=== PATIENT | female | born 2000 | race Caucasian/White ===

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

== ENCOUNTER 2021-05-04 16:46 | Outpatient (CLI) | payer MEDICAID, SELFPAY | END 2021-05-04 23:59 | disposition short-term general hospital (02) | LOC: PAT 06-19 16:46 | PROVIDERS: Referring Provider Otolaryngology; Visit Provider Otolaryngology | DX: U07.1 COVID-19 (principal) | CPT/HCPCS: 87426; 87635; U0005; U0003 ==

== ENCOUNTER 2021-07-10 07:00 | Day surgery (SDC) | payer MEDICAID, SELFPAY ==
[2021-07-10 07:27] VITALS: BP 110/84; PULSE 81; RESP 18; TEMP 36.8; O2SAT 100; BMI 35.4
[2021-07-10 07:30] LABS: Internal QC Validated? YES +Cl - CLEAR BKGD; Pregnancy, Urine Negative Negative
[2021-07-10] MEDS: Lactated Ringers 1,000 ML 15 ML IV (07:41)
--- NOTE | 2021-07-10 07:55 | PCM.DC.SUM ---
Providers Primary Care Physician: No Primary Care Phys Reason For Visit: TONSILLECTOMY Medications at Discharge Home Medications NK 05/03/21 Weight / BMI Weight Weight: 96.7 kg Body Mass Index (BMI) 35.4 ABG / Lab / Microbiology Data Laboratory: Laboratory Results - last 24 hr 07/10/21 07:18: Urine Test Negative D/C Instructions Discharge Diet: Soft diet Additional Activity Instructions: Soft diet x 2 weeks Meaningful Use Info Meaningful Use Diagnoses (Choose all that apply): None applicable Discharge Plan Admission Attending Provider: Dino Harris Primary Care Provider: Care Physician,No Primary Discharge Orders/Prescriptions Prescriptions: No Action NK RF: 0
--- NOTE | 2021-07-10 08:40 | TONS_PTH ---
PATIENT: JASMIN SAENZ [place] [facility] [place][id number] AGE/SX: 21/F ROOM: RE07/10/[address]: Dr. Dino Harris MD : 2000 BED: DIS: 07/10/2021 SPEC #: [id number] RECD: 07/10/21 12:30 STATUS: JUNIOR GRIS #: [id number] SARBJIT: 07/10/21 08:[address]: Dino Harris DEPT: SURGICAL PATHOLOGY RECD BY: Debbie Vivas ENTERED: 07/10/21 12:47 SP TYPE: TONSILS OTHR DR: No Primary Care Phys Tissues: Tonsil, NOS Procedures: Surgery Specimen Level III HEADER OPERATION: Tonsillectomy PRE-OP DIAGNOSIS: Chronic tonsillitis, hypertrophy of tonsils TISSUE SUBMITTED: Right and left tonsil, tie on right MICROSCOPIC DIAGNOSIS Right and left tonsils, bilateral tonsillectomies: Benign lymphoid follicular hyperplasia, consistent with chronic tonsillitis. Organisms consistent with actinomyces. AM:donald 07/11/2021 MICROSCOPIC DESCRIPTION Slides are reviewed. GROSS DESCRIPTION Received is one container labeled with the patient's name and designated tonsils - tie on right are two tonsils that in aggregate weigh 8.3 gm. The right tonsil has a tie on it and measures 3 x 2 x 1.5 cm. The left tonsil measures 2.5 x 2 x 1.5 cm. Both tonsils are similar in appearance. The external surfaces are pink-amado, smooth, glistening and somewhat lobulated. Focally they are hemorrhagic, granular and bear cautery artifact. Serial cross sections through the tonsils reveal normal tonsillar architecture. Sections are submitted in two cassettes as follows: 1 - right tonsil, 2 - left tonsil. / SHANTANU:donald 07/10/2021 TC:5 CPT: 16397 x2
[2021-07-10] MEDS: Bupivacaine Mpf 0.5% 30 ML VIAL (09:07)
--- NOTE | 2021-07-10 09:14 | PCM.OPRPT ---
Report of Operation Date of Procedure: 07/10/21 Pre-Operative Diagnosis: chronic tonsillitis tonsillar hypertrophy Post-Operative Diagnosis: same Surgery/Procedure Performed:: Tonsillectomy Surgeon: Dino Harris Type of Anesthesia: General Anesthesiologist: Desmond Pelayo Estimated Blood Loss (mL): minimal Description of Procedure: The patient was taken to the OR on 07/10/2021. The patient was placed in the supine position on the OR table. The patient was given sufficient general endotracheal anesthesia. The table was turned 90 degrees clockwise. A Tang mouthgag was inserted into the patient's mouth. The patient was suspended on a Zurita stand. The adenoid was inspected with a mirror, it was minimal and left alone. The right tonsil was grasped with an Allis clamp and removed using a bovie cautery. Absolute hemostasis was achieved using suction cautery. The left tonsil was grasped with an Allis clamp and removed using a bovie cautery. Absolute hemostasis was achieved using suction cautery. .5% marcaine was placed on an adenoid sponge and placed in each tonsillar fossa for one minute on each side and then removed. The gag was closed. It was re opened to inspect for bleeding and there was none. The gag was then removed. The patient was then awoken and brought to the recovery room in stable condition. Blood loss minimal, replacement none. Sponge, needle and instrument count were correct at the end of the procedure.
[2021-07-10 09:26] VITALS: BP 110/84; BP 116/83; PULSE 118; RESP 20; TEMP 36.3; O2SAT 100
[2021-07-10 09:30] VITALS: BP 108/77; BP 110/84; PULSE 117; RESP 16; O2SAT 98
[2021-07-10 09:45] VITALS: BP 101/59; BP 110/84; PULSE 93; RESP 16; O2SAT 98
[2021-07-10 09:57] VITALS: BP 109/76; BP 110/84; PULSE 98; RESP 16; TEMP 36.6; O2SAT 98
[2021-07-10] MEDS: HYDROcodone Bitartrate/Apap 5/325 Tablet PO (10:25)
[2021-07-10 11:00] VITALS: BP 100/58; BP 110/84; PULSE 100; RESP 16; TEMP 37; O2SAT 95
== END 2021-07-10 23:59 | disposition home or self-care (01) ==
LOC: SDC 07:03 → AC 07:05
PROVIDERS: Anesthesiology; Referring Provider Otolaryngology; Visit Provider Otolaryngology
PROC: (CPT 42826; principal; 2021-07-10 08:25)
DX: J35.01 Chronic tonsillitis (principal)
CPT/HCPCS: 42826; 00170; 81025; 88304; J7120; J2405